=== PATIENT | female | born 1980 | race Native Hawaiian/Other Pacific Islander ===

== ENCOUNTER 2018-12-19 07:00 | Emergency (ER) | payer OTHER ==
[~2018-12-19] VITALS: Ht 152.4 cm; Wt 56.2 kg
[2018-12-19 07:46] VITALS: BP 124/76
== END 2018-12-19 07:46 | disposition home or self-care (01) ==
LOC: ED 07:00
DX: R59.0 Localized enlarged lymph nodes (principal)

== ENCOUNTER 2019-03-16 22:04 | Emergency (ER) | payer OTHER ==
[~2019-03-16] VITALS: Ht 170.2 cm; Wt 59.0 kg
[2019-03-16 22:08] VITALS: Ht 170.2 cm; Wt 59.0 kg
[2019-03-16 23:11] LABS: CALCIUM 9.5 mg/dL (8.5-10.1); CARBON DIOXIDE 27.3 mmol/L (21-32); CHLORIDE SERUM 100 mmol/L (98-107); CREATININE SERUM 0.8 mg/dL (0.6-1.0); GFR1 > 60 mL/min; GLUCOSE SERUM 139 mg/dL (74-106); POTASSIUM SERUM 3.9 mmol/L (3.5-5.1); SODIUM SERUM 139 mmol/L (136-145)
[2019-03-16 23:12] LABS: PLATELET COUNT 285 x10^3mcL (130-400); RED CELL DISTRIBUTION WIDTH 13.3 % (11.5-14.5)
[2019-03-16 23:15] LABS: ALBUMIN 4.3 g/dL (3.4-5.0); ALKALINE PHOSPHATASE 77 U/L (46-116); ALT/SGPT 27 U/L (14-59); AST/SGOT 20 U/L (15-37); BILIRUBIN DIRECT 0.14 mg/dL (0.0-0.2); BILIRUBIN TOTAL 0.7 mg/dL (0.20-1.00); LIPASE 105 IU/L (73-393)
[2019-03-16 23:18] LABS: TOTAL PROTEIN, SERUM 8.4 g/dL (6.4-8.2)
[2019-03-16 23:23] LABS: BAND NEUTROPHIL 5 % (0-10); MONOCYTE 5 % (0-7); SEGMENTED NEUTROPHILS 85 % (37-75)
[2019-03-16 23:25] LABS: rbc morphology (normal/abnorm) NORMAL (NORMAL)
[2019-03-16 23:26] LABS: PLATELET MORPHOLOGY FEW LARGE PLATELET
[2019-03-17 00:14] VITALS: BP 126/79
== END 2019-03-17 00:14 | disposition home or self-care (01) ==
LOC: ED 22:04
PROVIDERS: Student in an Organized Health Care Education/Training Program
DX: R10.817 Generalized abdominal tenderness (principal); R11.2 Nausea with vomiting, unspecified; R19.7 Diarrhea, unspecified; I10 Essential (primary) hypertension
CPT/HCPCS: J2270; J2405; J7030

== ENCOUNTER 2020-03-30 06:30 | Day surgery (SDC) | payer OTHER ==
[~2020-03-30] VITALS: Ht 162.6 cm; Wt 53.5 kg
[2020-03-30 07:02] VITALS: BP 144/93
[2020-03-30 10:52] VITALS: BP 136/90
== END 2020-03-30 12:00 | disposition home or self-care (01) ==
LOC: DS 06:30 → OR 07:30 → DS 07:30
PROVIDERS: ATTEND Obstetrics & Gynecology
DX: Z30.2 Encounter for sterilization (principal); Z20.828 Contact with and (suspected) exposure to other viral communicable diseases
CPT/HCPCS: J0131; J0690; J2250; J2405; J3010; J3490; U0003